=== PATIENT | female | born 1975 | race Caucasian/White ===

== ENCOUNTER 2020-11-01 09:43 | Outpatient (CLI) | payer OTHER ==
[~2020-11-01] VITALS: Ht 175.3 cm; Wt 136.1 kg
[2020-11-01] VITALS (7 sets, daily range): BP systolic 135–171; BP diastolic 83–108; PULSE 85–107
[~2020-11-01 09:43] MED LIST: ADVIL200 MG; BAYER BACK AND BODY; CYMBALTA 60MG60 MG PO; FLEXERIL; FOLIC ACID 11 MG/TA1; GABAPENTIN; GLUCOPHAGE500 MG/TAB PO; HYDROCODONE/APAP; NORCO 325 MG-51 TAB PO; OZEMPIC0.25 MG/0. SQ; PRINIVIL20 MG PO; VITAMIN B11000 MCG/M IM; VITAMIN D 50,1.25 MG PO
[2020-11-01 11:43] LABS: GLUCOSE,CSF 78 mg/dL (40-70); TOTAL PROTEIN,CSF 36 mg/dL (15-45)
--- NOTE | 2020-11-01 12:40 | NUR ---
Pt ambulates with standby assist to restroom. No complaints. She has tolerated fluids without difficulty. DC instructions reviewed, and pt expresses understanding. She is assisted out by wheelchair to sister's car.
[2020-11-01 13:10] LABS: CSF MONONUCLEAR 0 % (70-100); CSF POLYMORPHONUCLEAR 0 % (0-6)
[2020-11-01 13:11] LABS: CSF APPEARANCE CLEAR; CSF COLOR COLORLESS; CSF RBC 325 /mm3 (0-0)
[2020-11-06 08:06] LABS: IGG/ALBUMIN SERUM 0.21 (<=0.40)
[2020-11-06 08:42] LABS: ALBUMIN CSF 14.3 mg/dL (<=27.0)
[2020-11-06 08:50] LABS: CSF IGG/ALBUMIN 0.38 (<=0.21); CSF SYNTHESIS RATE 19.11 mg/24 h (<=12); CSF,IGG 5.4 mg/dL (<=8.1); CSF-IGG INDEX 1.81 (<=0.85)
== END 2020-11-01 12:40 | disposition home or self-care (01) ==
LOC: COL.RAD 09:43
PROVIDERS: Psychiatry & Neurology Neurology
DX: R90.89 Other abnormal findings on diagnostic imaging of central nervous system (principal); E53.8 Deficiency of other specified B group vitamins; E11.69 Type 2 diabetes mellitus with other specified complication

== ENCOUNTER → 2021-01-13 | Outpatient (CLI) | payer OTHER | LOC: MC.RAD 09:51 | DX: Z12.31 Encounter for screening mammogram for malignant neoplasm of breast (principal) ==

== ENCOUNTER 2023-02-11 07:49 | Outpatient (RCR) | payer OTHER | END 2023-02-12 | LOC: WSOT | DX: G56.03 Carpal tunnel syndrome, bilateral upper limbs (principal); G35 Multiple sclerosis; E53.8 Deficiency of other specified B group vitamins; M21.372 Foot drop, left foot; R79.89 Other specified abnormal findings of blood chemistry ==

== ENCOUNTER 2024-07-27 07:02 | Day surgery (SDC) | payer OTHER ==
[~2024-07-27] VITALS: Ht 175.3 cm; Wt 113.6 kg
[~2024-07-27 07:02] MED LIST changes: +LR 1,000 ML IV SCH; +MOUNJARO2.5 MG/0.5 SQ
[2024-07-27] MEDS ORDERED: PRINIVIL40 MG PO (07:57)
[2024-07-27] MEDS ORDERED: PRILOSEC 20MG20 MG PO (07:58)
[2024-07-27] MEDS ORDERED: SYMMETREL100 M1 PO (07:59)
[2024-07-27] MEDS ORDERED: TREXALL15 MG PO (08:00)
[2024-07-27] MEDS ORDERED: MOUNJARO5 MG/0.5 M SQ (08:01)
[2024-07-27] MEDS ORDERED: VITAMIN D 50,1.25 MG PO (08:03)
[2024-07-27] MEDS ORDERED: LYVISPAH5 MG PO (08:04)
[2024-07-27] MEDS ORDERED: CYMBALTA 60MG60 MG PO (08:04)
[2024-07-27] MEDS ORDERED: LIPITOR20 MG PO (08:05)
[2024-07-27] MEDS ORDERED: DITROPAN 5MG TAB5 MG PO ×2 (08:06→08:07)
[2024-07-27 08:17] VITALS: BP 115/70; PULSE 100; TEMP 97.2
[2024-07-27] MEDS ORDERED: Glycopyrrolate 0.2 MG/ML 1 ML VIAL ONE (08:38)
[2024-07-27] MEDS ORDERED: NS 1,000 ML IV SCH (09:15)
[2024-07-27] MEDS ORDERED: traMADol 50 MG TAB PO PRN (09:15)
[2024-07-27] MEDS ORDERED: hydrALAZINE 20 MG/ML 1 ML VIAL IV PRN (09:15)
[2024-07-27] MEDS ORDERED: Ondansetron 4 MG/2 ML VIAL IV PRN ×2 (09:15)
[2024-07-27] MEDS ORDERED: Morphine 4 MG/ML VIAL IV PRN (09:15)
[2024-07-27] MEDS ORDERED: fentaNYL 50 MCG/ML 1 ML SYRINGE/VIAL [PACU/SDC ONLY] IV PRN (09:15)
[2024-07-27 09:24] VITALS: BP 116/70; PULSE 78; TEMP 96.9
[2024-07-27 09:39] VITALS: BP 133/89; PULSE 94
[2024-07-27 09:54] VITALS: BP 138/76; PULSE 82
--- NOTE | 2024-07-27 10:05 | NUR ---
0924 RETURNS TO ROM 8 FROM OR PER CART WITH HOB ELEVATED 50 DEGREE. AWAKE, ALERT. RESP UNLABORED. VITAL SIGNS OBTAINED. AUSTYN WRAPPED DRESSING RIGHT HAND/WRIST CLEAN DRY AND INTACT. MOVES FINGERS INDEPENDENTLY. NEURO/CIRC CHECKS INTACT. DENIES PAIN. CALL LIGHT AT SIDE 0940 AWAKE, ALERT. COVERSES APPROPRIATELY. HOB ELEVATED 80 DEGREES. TOLERATES PO WATER AND SODA WITHOUT NAUSEA. 0945 DISCHARGE INSTRUCTIONS REVIEWED. PATIENT VERBALIZES UNDERSTANDING. COPY PROVIDED IN DISCHARGE FOLDER 0951 SITS ON EDGE OF CART. DRESSES SELF
== END 2024-07-27 10:05 | disposition home or self-care (01) ==
LOC: SDCO 07:02
DX: M65.311 Trigger thumb, right thumb (principal); M65.4 Radial styloid tenosynovitis [de Quervain]; K21.9 Gastro-esophageal reflux disease without esophagitis; F17.200 Nicotine dependence, unspecified, uncomplicated; Z79.899 Other long term (current) drug therapy
CPT/HCPCS: J0665; J0690; J2704; J7120